=== PATIENT | female | born 1960 | race Hispanic/Latino ===

== ENCOUNTER → 2021-04-29 | Outpatient (CLI) | payer MEDICARE ==
[~2021-04-29] MED LIST: AEC81 PO; ALEN70TA80 PO; ATOR10 PO; GLIP5TAB11 PO; INSU10VI3 SQ; LEVO25TA9 PO; METF-444 PO; METO25TA6 PO; OMEP20CA12 PO; PREG150C PO
== END | disposition home or self-care (01) ==
LOC: SHCH 12:39
PROVIDERS: ATTEND Internal Medicine Cardiovascular Disease
DX: I11.9 Hypertensive heart disease without heart failure (principal); E11.9 Type 2 diabetes mellitus without complications; E78.5 Hyperlipidemia, unspecified
CPT/HCPCS: 93306; 93356

== ENCOUNTER → 2021-05-06 | Outpatient (CLI) | payer MEDICARE ==
[~2021-05-06] VITALS: Ht 149.9 cm; Wt 51.7 kg
[~2021-05-06] MED LIST changes: +REGADENOSON 0.4 MG/5 ML PF SYG IVP SCH
== END | disposition home or self-care (01) ==
LOC: OIH 07:53
PROVIDERS: ATTEND Internal Medicine Cardiovascular Disease
DX: R07.9 Chest pain, unspecified (principal); I10 Essential (primary) hypertension
CPT/HCPCS: 78452; 93017; 96374; A9500 ×2; J2785

== ENCOUNTER 2021-11-15 05:30 | Observation (INO) | payer MEDICARE ==
[2021-11-10 15:39] LABS: BASOPHILS % (AUTO) 0.9 % (0.0-5.0); LYMPHOCYTES % (AUTO) 21.6 % (21.0-51.0); MEAN CORPUSCULAR HEMOGLOBIN 29.4 pg (27.0-33.0); MEAN CORPUSCULAR HGB CONC 31.4 g/dL (32.0-36.0); MEAN CORPUSCULAR VOLUME 93.5 fL (79-99); MONOCYTES % (AUTO) 8.2 % (3.0-13.0); NEUTROPHILS % (AUTO) 68.1 % (40.0-77.0); PLATELET COUNT (AUTO) 435 K/uL (130-400); RED BLOOD CELL COUNT(AUTO) 3.85 MIL/uL (4.00-5.50); RED CELL DISTRIBUTION WIDTH 16.8 % (11.0-15.5); WHITE BLOOD COUNT (AUTO) 8.2 K/uL (4.8-10.8)
[2021-11-10 15:39] LABS: APPEARANCE,URINE CLOUDY (CLEAR); BILIRUBIN,URINE NEGATIVE (NEGATIVE); COLOR,URINE YELLOW (YELLOW); GLUCOSE, URINE (UA) NEGATIVE (NEGATIVE); KETONES,URINE NEGATIVE (NEGATIVE); LEUKOCYTE ESTERASE ,URINE LARGE (NEGATIVE); NITRATE,URINE NEGATIVE (NEGATIVE); OCCULT BLOOD,URINE MODERATE (NEGATIVE); PH,URINE 8.5 (5.0-8.0); PROTEIN,URINE >=300 mg/dL (NEGATIVE); UROBILINOGEN,URINE 0.2 mg/dL (0.2-1.0)
[2021-11-10 15:49] LABS: INR 0.93 (0.85-1.15); PROTHROMBIN TIME 9.9 SEC (9.6-11.6)
[2021-11-10 15:51] LABS: PARTIAL THROMBOPLASTIN TIME 26.5 SEC (26.3-35.5)
[2021-11-10 16:09] LABS: BACTERIA,URINE Moderate /HPF (None Seen)
[2021-11-10 16:10] LABS: SQUAMOUS EPITHELIAL CELL,UR Rare /HPF (0-2); TRIPLE PHOSPHATE CRYSTAL,UR Few /LPF (None Seen)
[2021-11-14 08:44] VITALS: BP 157/85
[~2021-11-15] VITALS: Ht 149.9 cm; Wt 54.2 kg
[2021-11-15] VITALS (23 sets, daily range): BP systolic 126–191; BP diastolic 67–96
[~2021-11-15 05:30] MED LIST changes: -REGADENOSON 0.4 MG/5 ML PF SYG IVP SCH
[2021-11-15] MEDS: CEFAZOLIN SODIUM 1 GM VIAL IVP SCH ×2 (06:00→11:20)
[2021-11-15] MEDS ORDERED: LACTATED RINGERS 1000ML 1,000 ML IV SCH ×2 (06:00→15:00)
[2021-11-15] MEDS ORDERED: 0.9%NACL 1000ML 0 ML IV ONE (08:11)
[2021-11-15] MEDS ORDERED: 0.9% NACL 500ML IV.SOLN 500 ML IV ONE (08:59)
[2021-11-15 09:36] LABS: CREATININE 3.6 mg/dL (0.5-1.5); POTASSIUM 3.8 mmol/L (3.5-5.1)
[2021-11-15] MEDS ORDERED: SUCCINYLCHOLINE CHLORIDE 20 MG/ML 10 ML VIAL ONE ×2 (11:14→11:15)
[2021-11-15] MEDS ORDERED: ONDANSETRON 4MG INJ ONE (11:14)
[2021-11-15] MEDS ORDERED: DEXAMETHASONE SOD PHOSPHATE 10MG/ML 1ML VIAL ONE (11:14)
[2021-11-15] MEDS ORDERED: LIDOCAINE PF 100MG/5ML (2%) SYRINGE 5ML ONE ×2 (11:14→11:16)
[2021-11-15] MEDS ORDERED: NEOSTIGMINE 5MG/5ML SYR IV ONE (11:15)
[2021-11-15] MEDS ORDERED: ROCURONIUM 10MG/1ML SYR 10 MG/ML ML ONE (11:15)
[2021-11-15] MEDS ORDERED: GLYCOPYRROLATE 1 MG/5 ML SYRINGE ONE (11:15)
[2021-11-15] MEDS ORDERED: PROPOFOL 10 MG/ML 20ML VIAL IV ONE (11:15)
[2021-11-15] MEDS ORDERED: FENTANYL CITRATE PF 50 MCG/1 ML 2ML VIAL ONE (11:15)
[2021-11-15] MEDS ORDERED: HYDRALAZINE 20MG/ML VIAL ONE (13:30)
[2021-11-15] MEDS ORDERED: MEPERIDINE-PF 25 MG/ML SYG ONE ×2 (13:36→13:57)
[2021-11-15] MEDS ORDERED: MEPERIDINE-PF 75 MG/ML SYG ONE (15:00)
[2021-11-15] MEDS ORDERED: PROMETHAZINE HCL 25 MG/ML 1ML AMPULE IM PRN (15:00)
[2021-11-15] MEDS ORDERED: MEPERIDINE-PF 75 MG/ML SYG IM PRN (15:00)
[2021-11-15] MEDS ORDERED: BISACODYL 10 MG SUPP.RECT RC PRN (15:00)
[2021-11-15] MEDS ORDERED: IBUPROFEN 600 MG TABLET PO PRN (15:00)
[2021-11-15] MEDS: PROMETHAZINE HCL 25 MG/ML 1ML AMPULE IM PRN ×2 (15:15→20:12)
[2021-11-15] MEDS: INSULIN HUMULIN R 100 UNIT/ML 3ML SQ SCH ×2 (17:54→21:11)
[2021-11-15 23:12] LABS: HEPATITIS B SURFACE ANTIGEN Non-Reactive (Nonreactive)
[2021-11-16] VITALS (22 sets, daily range): BP systolic 92–181; BP diastolic 60–122
[2021-11-16 05:26] LABS: HEMATOCRIT 37.7 % (36-48); MEAN CORPUSCULAR HEMOGLOBIN 29.5 pg (27.0-33.0); MEAN CORPUSCULAR HGB CONC 32.1 g/dL (32.0-36.0); RED BLOOD CELL COUNT(AUTO) 4.1 MIL/uL (4.00-5.50); RED CELL DISTRIBUTION WIDTH 17.5 % (11.0-15.5); WHITE BLOOD COUNT (AUTO) 15.1 K/uL (4.8-10.8)
[2021-11-16] MEDS: ONDANSETRON 4MG INJ IVP PRN ×2 (05:57→13:47)
[2021-11-16] MEDS: INSULIN HUMULIN R 100 UNIT/ML 3ML SQ SCH ×4 (07:37→21:00)
[2021-11-16] MEDS: DOCUSATE SODIUM 100 MG CAP PO PRN ×2 (08:51→21:32)
[2021-11-16] MEDS: ACETAMINOPHEN WITH CODEINE 1 TAB TAB PO PRN ×2 (08:52→13:47)
[2021-11-16] MEDS: SIMETHICONE 80 MG TAB.CHEW PO PRN ×2 (08:52→21:31)
[2021-11-16] MEDS ORDERED: HEPARIN 5,000 UNIT VIAL IV SCH (13:50)
[2021-11-17 03:32] VITALS: BP 128/72
[2021-11-17] MEDS: ACETAMINOPHEN WITH CODEINE 1 TAB TAB PO PRN ×2 (03:50→12:43)
[2021-11-17] MEDS: INSULIN HUMULIN R 100 UNIT/ML 3ML SQ SCH ×2 (07:22→11:30)
[2021-11-17 08:20] VITALS: BP 127/68
[2021-11-17] MEDS: DOCUSATE SODIUM 100 MG CAP PO PRN (09:54)
[2021-11-17] MEDS: SIMETHICONE 80 MG TAB.CHEW PO PRN (09:54)
[2021-11-17] MEDS ORDERED: ACET-2079 PO (10:35)
[2021-11-17 11:50] VITALS: BP 101/71
== END 2021-11-17 13:25 | disposition home or self-care (01) ==
LOC: DAH 05:30 → OBSVTOIN 05:31 → DAH 05:31 → INTOOBSV 05:31 → DAHIP 05:31 → WSH 14:15
PROVIDERS: ADMIT Obstetrics & Gynecology; ATTEND Obstetrics & Gynecology
DX: N81.4 Uterovaginal prolapse, unspecified (principal); Z20.822 Contact with and (suspected) exposure to COVID-19; D64.9 Anemia, unspecified; E03.9 Hypothyroidism, unspecified; E11.22 Type 2 diabetes mellitus with diabetic chronic kidney disease; I12.0 Hypertensive chronic kidney disease with stage 5 chronic kidney disease or end stage renal disease; N18.6 End stage renal disease; E11.43 Type 2 diabetes mellitus with diabetic autonomic (poly)neuropathy; E78.5 Hyperlipidemia, unspecified; E83.39 Other disorders of phosphorus metabolism; E87.1 Hypo-osmolality and hyponatremia; F41.1 Generalized anxiety disorder; K31.84 Gastroparesis; K46.9 Unspecified abdominal hernia without obstruction or gangrene; Z99.2 Dependence on renal dialysis; Z79.899 Other long term (current) drug therapy
CPT/HCPCS: 36415 ×3; 57210; 58263; 80048; 81001; 82948 ×9; 85025; 85027; 85610; 85730; 86704; 86706; 86850 ×2; 86900 ×2; 86901 ×2; 87077 ×2; 87088 ×2; 87186 ×2; 87340; 87635; 96372; 96374; 96375; 96376; A4215; A4221; A4222; A4223; A4344; A4351; A4600; A4606; A4663; A6260; C9803; G0378 ×21; J0330 ×2; J0360; J0690; J1100; J1644; J1815 ×5; J2001 ×2; J2175 ×4; J2405 ×3; J2550; J2704; J2710; J3010; J3490; J7040 ×2; J7120 ×3; 90935; J7030

== ENCOUNTER → 2023-03-30 | Outpatient (CLI) | payer MEDICARE ==
[~2023-03-30] MED LIST changes: +ACET-2079 PO; -GLIP5TAB11 PO; +GLIP5TAB15 PO; +IOHEXOL 350 MG/ML 100ML INFUS..BTL IV ONE; +METOPROLOL TARTRATE 1 MG/ML 5ML VIAL IV ONE
== END | disposition home or self-care (01) ==
LOC: RAH 08:28
PROVIDERS: ATTEND Internal Medicine Cardiovascular Disease
DX: R06.00 Dyspnea, unspecified (principal); M47.815 Spondylosis without myelopathy or radiculopathy, thoracolumbar region
CPT/HCPCS: 75574; J3490; Q9967

== ENCOUNTER → 2023-04-07 | Outpatient (CLI) | payer MEDICARE ==
[~2023-04-07] MED LIST changes: -IOHEXOL 350 MG/ML 100ML INFUS..BTL IV ONE; -METOPROLOL TARTRATE 1 MG/ML 5ML VIAL IV ONE
== END | disposition home or self-care (01) ==
LOC: SHCH 15:33
PROVIDERS: ATTEND Internal Medicine Cardiovascular Disease
DX: I08.8 Other rheumatic multiple valve diseases (principal); I27.20 Pulmonary hypertension, unspecified; I31.39 Other pericardial effusion (noninflammatory)
CPT/HCPCS: 93306

== ENCOUNTER → 2023-05-23 | Outpatient (CLI) | payer MEDICARE ==
[~2023-05-23] VITALS: Ht 149.9 cm; Wt 55.9 kg
[~2023-05-23] MED LIST changes: +ALPR0.255 PO; +ATOR-2 PO; +CALC ACETATE PO; +CARV12.511 PO; +CLON0.1T PO; +CLOP75TA32 PO; +FOLI0.8T43 PO; +INSU100V37 SQ; +METO10TA3 PO; +NAPH15DR13 OU; +NITR0.4T50 SL; +ONDA4TAB10 PO; +PANT40TA54 PO; +PROP8DRO2 OP; +SACU1TAB PO; +albuterol sulf IH
[2023-05-23 15:09] LABS: BASOPHILS # (AUTO) 0.08 K/uL (0.00-0.20); BASOPHILS % (AUTO) 0.8 % (0.0-5.0); EOSINOPHILS # (AUTO) 0.48 K/uL (0.00-0.70); EOSINOPHILS % (AUTO) 4.7 % (0.0-8.0); IMMATURE GRANULOCYTE ABSOLUTE 0.03 K/uL (0-1); LYMPHOCYTES # (AUTO) 1.6 K/uL (1.0-4.8); LYMPHOCYTES % (AUTO) 15.1 % (21.0-51.0); MEAN CORPUSCULAR HEMOGLOBIN 29.5 pg (27.0-33.0); MEAN CORPUSCULAR HGB CONC 32.3 g/dL (32.0-36.0); MEAN CORPUSCULAR VOLUME 91.3 fL (79-99); MONOCYTES # (AUTO) 0.8 K/uL (0.1-1.0); MONOCYTES % (AUTO) 7.6 % (3.0-13.0); NEUTROPHILS # (AUTO) 7.4 K/uL (1.8-7.7); NEUTROPHILS % (AUTO) 71.5 % (40.0-77.0); PLATELET COUNT (AUTO) 148 K/uL (130-400); RED BLOOD CELL COUNT(AUTO) 4.27 MIL/uL (4.00-5.50); RED CELL DISTRIBUTION WIDTH 17.2 % (11.0-15.5); WHITE BLOOD COUNT (AUTO) 10.3 K/uL (4.8-10.8)
[2023-05-23 15:24] LABS: INR 0.96 (0.85-1.15); PROTHROMBIN TIME 11.2 SEC (9.6-11.6)
[2023-05-23 15:26] LABS: PARTIAL THROMBOPLASTIN TIME 31.3 SEC (26.3-35.5)
[2023-05-23 15:31] LABS: CREATININE 3.4 mg/dL (0.5-1.5); POTASSIUM 4.4 mmol/L (3.5-5.1)
[2023-05-23 15:52] VITALS: BP 163/91; PULSE 77; RESP 16
== END | disposition home or self-care (01) ==
LOC: DAH 10:00 → EDSTATUS 12:00
PROVIDERS: ATTEND Student in an Organized Health Care Education/Training Program
DX: Z01.812 Encounter for preprocedural laboratory examination (principal); N18.6 End stage renal disease
CPT/HCPCS: 80048; 85025; 85610; 85730; 86850; 86900; 86901; 36415; A6260

== ENCOUNTER → 2023-10-08 | Outpatient (CLI) | payer MEDICARE ==
[~2023-10-08] MED LIST changes: -ALEN70TA80 PO; -ATOR10 PO; -GLIP5TAB15 PO; -METF-444 PO; -METO25TA6 PO; -OMEP20CA12 PO; -PREG150C PO
== END | disposition home or self-care (01) ==
LOC: SHCH 12:36
PROVIDERS: ATTEND Internal Medicine Cardiovascular Disease
DX: I08.8 Other rheumatic multiple valve diseases (principal); I11.9 Hypertensive heart disease without heart failure; R06.00 Dyspnea, unspecified; E11.9 Type 2 diabetes mellitus without complications; E78.5 Hyperlipidemia, unspecified; Z98.61 Coronary angioplasty status
CPT/HCPCS: 93306

== ENCOUNTER 2023-12-28 05:59 | Day surgery (SDC) | payer MEDICARE ==
[2023-12-26 09:21] LABS: BASOPHILS # (AUTO) 0.05 K/uL (0.00-0.20); BASOPHILS % (AUTO) 0.6 % (0.0-5.0); EOSINOPHILS # (AUTO) 0.31 K/uL (0.00-0.70); EOSINOPHILS % (AUTO) 3.4 % (0.0-8.0); HEMATOCRIT 38.5 % (36-48); IMMATURE GRANULOCYTE ABSOLUTE 0.04 K/uL (0-1); LYMPHOCYTES # (AUTO) 1.5 K/uL (1.0-4.8); LYMPHOCYTES % (AUTO) 16.3 % (21.0-51.0); MEAN CORPUSCULAR HEMOGLOBIN 30.7 pg (27.0-33.0); MEAN CORPUSCULAR HGB CONC 31.7 g/dL (32.0-36.0); MONOCYTES % (AUTO) 10.5 % (3.0-13.0); NEUTROPHILS # (AUTO) 6.3 K/uL (1.8-7.7); NEUTROPHILS % (AUTO) 68.8 % (40.0-77.0); PLATELET COUNT (AUTO) 208 K/uL (130-400); RED BLOOD CELL COUNT(AUTO) 3.97 MIL/uL (4.00-5.50); RED CELL DISTRIBUTION WIDTH 15.2 % (11.0-15.5); WHITE BLOOD COUNT (AUTO) 9.1 K/uL (4.8-10.8)
[2023-12-26 09:28] VITALS: BP 161/82; PULSE 71; RESP 16
[2023-12-26 09:34] LABS: CREATININE 6.1 mg/dL (0.5-1.0); POTASSIUM 5.8 mmol/L (3.5-5.1)
[2023-12-26 09:37] LABS: INR 1.06 (0.85-1.15); PROTHROMBIN TIME 11.4 SEC (9.6-11.6)
[2023-12-26 09:39] LABS: PARTIAL THROMBOPLASTIN TIME 26.8 SEC (26.3-35.5)
[~2023-12-28] VITALS: Ht 149.9 cm; Wt 57.0 kg
[2023-12-28] VITALS (12 sets, daily range): BP systolic 114–150; BP diastolic 59–73; PULSE 63–69; RESP 14–17
[~2023-12-28 05:59] MED LIST changes: -ATOR-2 PO; +ATOR40TA69 PO; +AURYXIA PO; -CALC ACETATE PO; -CLOP75TA32 PO; +LINA145C PO; +MELA1TAB73 PO; -NAPH15DR13 OU; +ONDA-243 SL; -ONDA4TAB10 PO; -PROP8DRO2 OP
[2023-12-28] MEDS: 0.9%NACL 1000ML 1,000 ML IV ONE (07:11)
[2023-12-28] MEDS ORDERED: LIDOCAINE HCL 1% MDV 50ML VIAL ONE (07:28)
[2023-12-28] MEDS ORDERED: ceFAZolin SODIUM 1 GM VIAL ONE (07:28)
[2023-12-28] MEDS ORDERED: IOHEXOL-350 50ML VIAL IV ONE (07:29)
[2023-12-28] MEDS ORDERED: BUPIvacaine/PF 0.25% 30ML VIAL IJ ONE (07:29)
[2023-12-28] MEDS ORDERED: MEPERIDINE-PF 25 MG/ML SYG ONE ×2 (07:29→07:56)
[2023-12-28] MEDS ORDERED: MIDAZOLAM HCL 1 MG/ML 2ML VIAL ONE ×2 (07:29→07:56)
[2023-12-28] MEDS ORDERED: VANCOMYCIN 1G/250ML KIT 500 ML IV ONE (07:42)
[2023-12-28] MEDS ORDERED: ONDANSETRON 4MG INJ IV PRN (09:00)
[2023-12-28] MEDS ORDERED: acetaMINOPHEN WITH coDEINE 1 TAB TAB PO PRN ×2 (09:00)
== END 2023-12-28 14:54 | disposition home or self-care (01) ==
LOC: DAH 05:59
PROVIDERS: ATTEND Internal Medicine Cardiovascular Disease
DX: I25.5 Ischemic cardiomyopathy (principal); I25.10 Atherosclerotic heart disease of native coronary artery without angina pectoris; E03.9 Hypothyroidism, unspecified; K21.9 Gastro-esophageal reflux disease without esophagitis; I13.2 Hypertensive heart and chronic kidney disease with heart failure and with stage 5 chronic kidney disease, or end stage renal disease; I50.42 Chronic combined systolic (congestive) and diastolic (congestive) heart failure; I25.2 Old myocardial infarction; E78.5 Hyperlipidemia, unspecified; N18.6 End stage renal disease; Z95.5 Presence of coronary angioplasty implant and graft; Z79.82 Long term (current) use of aspirin; Z88.1 Allergy status to other antibiotic agents; Z90.49 Acquired absence of other specified parts of digestive tract; Z79.01 Long term (current) use of anticoagulants; Z98.42 Cataract extraction status, left eye; Z98.41 Cataract extraction status, right eye; Z79.899 Other long term (current) drug therapy; Z99.2 Dependence on renal dialysis
CPT/HCPCS: 80048; 85025; 85610; 85730; 36415; 93005; 33249; 82948; 71045; C1721; C1895 ×2; C1894; J7030 ×2; J0665; J2250 ×2; J3370; J2175 ×2; J3490; Q9967; A4215; A4222; A4221; A4663; A4216; A4606; A4223 ×3; 99156; 99157; J0690

== ENCOUNTER 2025-02-06 08:06 | Day surgery (SDC) | payer MEDICARE ==
[2025-02-05 09:37] VITALS: BP 127/84; PULSE 89; RESP 18; TEMP 97.3
[2025-02-05 09:41] LABS: IMMATURE GRANULOCYTE ABSOLUTE 0.02 K/uL (0-1); NUCLEATED RED BLOOD CELLS 0.0 % (0.0-0.19); PLATELET COUNT (AUTO) 197 K/uL (130-400); RED BLOOD CELL COUNT(AUTO) 3.46 MIL/uL (4.00-5.50); RED CELL DISTRIBUTION WIDTH 17.4 % (11.0-15.5); WHITE BLOOD COUNT (AUTO) 8.2 K/uL (4.8-10.8)
[2025-02-05 09:53] LABS: INR 1.2 (0.85-1.15)
[2025-02-05 10:03] LABS: ASPARTATE AMINOTRANSFERASE 59.0 U/L (10-37); CREATININE 3.0 mg/dL (0.5-1.0); GLOMERULAR FILTR. RATE CALC 17.0 mL/min (>90); SODIUM SERUM 134.0 mmol/L (136-145); TOTAL PROTEIN, SERUM 7.3 g/dL (6.0-8.3); UREA NITROGEN, BLOOD 35.0 mg/dL (7-18)
[2025-02-05 10:09] LABS: GLUCOSE,RANDOM 409.0 mg/dL (70-105)
--- NOTE | 2025-02-05 10:58 | NUR ---
REPORT REPORTED GLUCOSE AND ALK PHOS TO DR REED. RECEIVED INSTRUCTIONS FOR PT TO TAKE MEDICATIONS AND INSULIN ORDERED. CALLED PT AND SPOKE TO DAUGHTER. SHE WAS INFORMED OF ABOVE AND REPORTED PT HAD NOT TAKEN MEDS SO SHE WILL MAKE SURE SHE TAKES THEM CORRECTLY. BMP WILL BE REPEATED IN AM
[2025-02-06] VITALS (16 sets, daily range): BP systolic 102–112; BP diastolic 6–68; PULSE 61–71; RESP 12–16; TEMP 97.1–97.3
[~2025-02-06] VITALS: Ht 149.9 cm; Wt 53.5 kg
[~2025-02-06 08:06] MED LIST changes: -ACET-2079 PO; +ATOR-2 PO; -ATOR40TA69 PO; -AURYXIA PO; +CLOP75TA32 PO; -FOLI0.8T43 PO; +GABA-529 PO; +LACT10SO76 PO; -LEVO25TA9 PO; +LEVO50CA5 PO; +LIFI1DRO5 OP; +TRAMADOL PO
[2025-02-06] MEDS: DEXTROSE 50%-WATER 50 ML DISP.SYRIN IV ONE ×2 (08:36→10:57)
[2025-02-06] MEDS: 0.9% NACL 500ML IV.SOLN 500 ML IV ONE (08:37)
[2025-02-06 08:47] LABS: CREATININE 3.5 mg/dL (0.5-1.0); GLOMERULAR FILTR. RATE CALC 14.0 mL/min (>90); GLUCOSE,RANDOM 56.0 mg/dL (70-105); SODIUM SERUM 133.0 mmol/L (136-145); UREA NITROGEN, BLOOD 45.0 mg/dL (7-18)
--- NOTE | 2025-02-06 09:16 | NUR ---
per dr melchor give 25 ml dextrose now and monitor bs done
[2025-02-06] MEDS ORDERED: HEParin-NS 1,000 UNIT/500 ML 500 ML IV ONE (09:30)
[2025-02-06] MEDS ORDERED: LIDOCAINE PF 100MG/5ML (2%) SYRINGE 5ML ONE (11:44)
[2025-02-06] MEDS ORDERED: MIDAZOLAM HCL 1 MG/ML 2ML VIAL ONE (11:46)
[2025-02-06] MEDS ORDERED: CLINDAMYCIN IVPB 600MG/50ML 50 ML IV ONE (12:11)
[2025-02-06] MEDS ORDERED: PROTamine SULFate 10 MG/ML 25ML VIAL IV ONE (13:26)
--- NOTE | 2025-02-06 15:20 | NUR ---
CALLED DAUGHTER FOR PT PICKUP STATED SHE WILL COME AROUND 1600 FOR PT.
--- NOTE | 2025-02-06 15:26 | OP ---
Operative Note: DATE OF PROCEDURE: 02/06/25 SURGEON: FILIBERTO REED MD [employer] INSPECTOR: [] PREOPERATIVE DIAGNOSIS: End-stage renal disease POSTOPERATIVE DIAGNOSIS: End-stage renal disease PROCEDURE: Right upper extremity brachiobasilic fistula creation with transposition INDICATIONS: Patient needs access for dialysis ESTIMATED BLOOD LOSS: 15cc Devices left in place: None Anesthesia: General endotracheal DESCRIPTION OF PROCEDURE: Patient is brought to the operating room placed on the operating table in a supine position. Once general endotracheal anesthesia is achieved patient's right upper extremity up to the axilla is prepped and draped in sterile fashion. Using ultrasound we identified the basilic vein and confirmed that it was adequate for fistula creation. We then proceeded to create a longitudinal incision medially in the arm and dissected down through the subcutaneous tissue to expose the basilic vein. We exposed that for a length of about 20 cm down to the antecubital fossa. And clipped all its branches. We then proceeded to create a transverse incision at the antecubital fossa. Expose the brachial artery for a length of about 4 cm and obtained proximal and distal control. We then asked anesthesia to give 5000 units of heparin. I then proceeded to clamp the basilic vein proximally and distally divided it at the level of the elbow. And suture ligated the distal and end. We then proceeded to to dilate the vein with heparinized saline and ensured that there were no leaks from all the branches were clipped or sutured. We then proceeded to use a Prichard tunneler to tunnel the vein medially and brought it out through the antecubital fossa incision. I then clamped the brachial artery proximally and distally. I then proceeded to create a end-to-side anastomosis between the brachial artery and the basilic vein at the antecubital fossa with 6-0 Prolene. I then opened up the clamp to the vein first and that there to be backflow. And then proceeded to open the proximal clamp on the artery emanated flush out the anastomosis and then open the distal clamp. I then proceeded to suture the anastomosis. We ensured with a Doppler that we had a strong palmar arch pulse at the right hand and ulnar and radial pulses as well. We had a good thrill throughout the fistula. We then closed both incisions with 2 layers with subcutaneous tissue being closed with 2-0 Vicryl in running fashion and the skin was closed with 4-0 Monocryl in running fashion. Skin dressings were applied over top patient tolerated the procedure well all counts were correct x2 at the end of the procedure. FILIBERTO REED MD Feb 06, 2025 15:26
--- NOTE | 2025-02-06 16:24 | NUR ---
VERBAL AND WRITTEN DISCHARGE INSTRUCTIONS GIVEN TO BOTH PT AND DAUGHTER IV REMOVED SITE ASYMPTOMATIC. PT TAKEN OUT VIA WHEELCHAIR DAUGHTER DRIVING.
== END 2025-02-06 16:37 | disposition home or self-care (01) ==
LOC: DAH 08:06
PROVIDERS: ATTEND Student in an Organized Health Care Education/Training Program
DX: E11.22 Type 2 diabetes mellitus with diabetic chronic kidney disease (principal); N18.6 End stage renal disease; I12.0 Hypertensive chronic kidney disease with stage 5 chronic kidney disease or end stage renal disease; J45.909 Unspecified asthma, uncomplicated; Z95.0 Presence of cardiac pacemaker; Z98.890 Other specified postprocedural states; Z90.49 Acquired absence of other specified parts of digestive tract; Z88.1 Allergy status to other antibiotic agents; Z86.73 Personal history of transient ischemic attack (TIA), and cerebral infarction without residual deficits; Z79.4 Long term (current) use of insulin; Z79.899 Other long term (current) drug therapy
CPT/HCPCS: 80053; 85025; 85610; 85730; 86850; 86900; 86901; 36415 ×2; 36819; 64415; 80048; 82948 ×6; A6260; A4663; J7040; J3010; J0690 ×2; J1100; J0665 ×2; J7070 ×2; J3490 ×2; J2003; J1644 ×2; J2250; J2795; A6204; A4649 ×2; C1713 ×2; A4215; A4213; A4222; A4221; A4216; J2720; A4223 ×2; J2704